=== PATIENT | female | born 1980 | race Hispanic/Latino ===

== ENCOUNTER 2025-07-01 11:22 | Emergency (ER) | payer SELFPAY ==
--- NOTE | ~2025-07-01 | XR_ITS ---
EXAMINATION: XR foot LT min 3V, 07/01/2025 11:54 CDT HISTORY: Lt foot pain, bruising, swelling top foot no injury 4x days COMPARISON: No comparisons available. Findings: No acute fracture or malalignment. No significant degenerative changes. Soft tissues unremarkable. Impression: No acute fracture or malalignment. Reviewed, dictated and finalized at location A. Impression: No acute fracture or malalignment.
[2025-07-01 11:32] VITALS: BP 109/67; PULSE 75; RESP 18; TEMP 36.8; O2SAT 100
--- NOTE | 2025-07-01 11:41 | ED.LOWEXIN ---
HPI - Extremity Injury (Lower) General Chief Complaint: Extremity Injury, Lower Stated Complaint: Left Foot Swelling [facility] accompanied by family who is helping to translate for patient. 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 Patient noted 6 days ago was rocking on her feet felt a sharp pain in the top of her left foot and now has occasional sharp pain and numbness to the left foot. For a couple days after this happened patient reports swelling and bruising to the top of foot, This has resolved. Patient also reports occasionally having some swelling at the end of the day. denies any history of injury to this foot. Related Data Home Medications ?Medication ?Instructions ?Recorded ?Confirmed ?Last Taken ?Type fenofibrate 54 mg tablet mg 07/01/25 Unknown History Allergies Allergy/AdvReac Type Severity Reaction Status Date / Time No Known Allergies Allergy Verified 07/01/25 11:43 Review of Systems Constitutional: Constitutional: Reports as per HPI, Denies chills, Denies fatigue, Denies fever(s) and Denies weakness Eyes: Eyes: Reports no additional eye complaints ENT: Reports system reviewed and no additional complaints, except as documented Cardiovascular: Cardiovascular: Reports no additional cardiovascular complaints Respiratory: Respiratory: Reports no additional respiratory complaints Gastrointestinal: Gastrointestinal: Reports no additional gastrointestinal complaints Genitourinary: Genitourinary: Reports no additional female genitourinary complaints Musculoskeletal: Musculoskeletal: Reports as per HPI, Reports arthralgias, Reports joint swelling and Denies muscle cramps Integumentary/Breasts: Skin/Breast: Reports as per HPI, Denies pruritus, Denies rash and Denies skin ulcer Comments: bruising and swelling left foot Neurologic: Reports as per HPI, Denies syncope and Reports numbness Psychiatric: Psychiatric: Reports no additional psychiatric complaints Endocrine: Endocrine: Reports no additional endocrine complaints Hematologic/Lymphatic: Hematologic/Lymphatic: Reports no additional hematologic/lymphatic complaints Allergic/Immunologic: Allergic/Immunologic: Reports no additional allergic/immunologic complaints Exam Const: General: healthy appearing and no acute distress Nutritional Appearance: well nourished Orientation/consciousness: patient oriented x3 Limitations: no limitations Resp: Effort & Inspection: normal respiratory effort Auscultation: clear to auscultation bilaterally Cardio: Rate: regular rate Rhythm: regular rhythm Skin: General skin exam: normal color Rashes: no rashes Wounds: no wounds Neuro: General: patient oriented x3 and moves all extremities Speech: normal speech Gait exam (Neuro): Normal gait present Extrem: Left lower extremity: foot Details: normal capillary refill, normal to inspection, toes with normal ROM, no edema, vascular exam Details: dorsalis pedis pulse present, posterior tibial pulse present and normal capillary refill, tendon exam active flexion normal and active extension normal and motor-sensory exam two point discrimination normal, light-touch normal and pin-prick normal; Negative for abnormal to inspection, no tenderness, no unusual warmth, no abrasions, no lacerations, no ecchymosis and no crepitus Psych: Mental Status: mental status grossly normal Affect: normal affect Attitude: cooperative Course Course Level of Care: [facility] Visit Vital Signs Vital signs: Vital Signs Temperature 98.3 F 07/01/25 11:32 Pulse Rate 75 07/01/25 11:32 Respiratory Rate 18 07/01/25 11:32 Blood Pressure 109/67 07/01/25 11:32 Pulse Oximetry 100 07/01/25 11:32 Oxygen Delivery Room Air 07/01/25 11:32 Temperature 98.3 F 07/01/25 11:32 Pulse Rate 75 07/01/25 11:32 Respiratory Rate 18 07/01/25 11:32 Blood Pressure 109/67 07/01/25 11:32 Pulse Oximetry 100 07/01/25 11:32 Oxygen Delivery Room Air 07/01/25 11:32 MDM - Extremity Injury (Lower) MDM Narrative Medical decision making narrative: Will obtain x-rays. Reports numbness but no pain with range of motion, limited range of motion, or wounds noted to foot. The patient was evaluated by myself in the [facility] care. History is obtained from patient who is an independent historian and physical exam was performed. Available medical records were reviewed at this time. Exam findings show no acute concerns or changes; patient is non-toxic appearing and is in no distress. Patient is appropriate for outpatient treatment and follow-up. I have evaluated and discussed social determinants of health with the patient that could potentially impact subsequent diagnosis and treatment plans. Differential diagnosis and treatment plan were discussed with the patient. Patient agrees with discussion and after shared medical decision making agrees with plan of care. All questions were answered to the patient's satisfaction. Differential Diagnosis Differential diagnosis: Likely ankle sprain and strain, puncture wound of foot, fracture of toe and ankle fracture Medical Records Attestation: I reviewed the patient's medical records. Imaging Data Attestation: I personally reviewed and interpreted this imaging study as follows: My impression: no fracture or abnormality Radiologist's impression: Impression: No acute fracture or malalignment. Reviewed, dictated and finalized at location A. Discharge Plan Discharge Clinical Impression: Acute pain of left foot, Numbness of left foot Patient Disposition: Home Condition: Stable Instructions: Antibiotic Form, Foot Sprain (ED) Additional Instructions: Xray showed no fracture. Minimize activities that aggravate the condition The RICE protocol. Follow the RICE protocol as soon as possible after your injury: Rest your affected limb by not walking on it/not using this. Ice should be immediately applied to keep the swelling down. It can be used for 20 to 30 minutes, three or four times daily. Do not apply ice directly to your skin. Gentle range of motion exercises as tolerated. Compression dressings, bandages or oliver-wraps will immobilize and support your injured limb Elevate affected area above the level of your heart if possible as often as possible during the first 48 hours then as needed for increased swelling. Medication: Nonsteroidal anti-inflammatory drugs (NSAIDs) such as ibuprofen and naproxen can help control pain and swelling. Because they improve function by both reducing swelling and controlling pain, they are a better option for mild sprains than narcotic pain medicines. Please schedule a follow-up visit with your personal physician for further evaluation and treatment within 1week OR If your symptoms persist, change or worsen significantly before you can contact your personal physician then please, without delay, go to the emergency department for further evaluation. Patient Language: Nicarag[place] Prescriptions: No Action fenofibrate 54 mg tablet Follow-up/Referrals: Arias,RAPHAEL Pardo [Primary Care Provider, Unknown] Time of Disposition: 12:17
== END 2025-07-01 12:24 | disposition home or self-care (01) ==
PROVIDERS: Emergency Provider Nurse Practitioner Family; PCP Physician Assistant Medical
DX: M79.672 Pain in left foot (principal); R20.0 Anesthesia of skin
CPT/HCPCS: 73630; 99203; G0463